=== PATIENT | female | born 1950 | race African-American/Black ===

== ENCOUNTER 2018-11-28 15:36 | Emergency (ER) | payer OTHER ==
[~2018-11-28] VITALS: Ht 157.5 cm; Wt 64.0 kg
[2018-11-28] MEDS ORDERED: ASPIR 8181 MG PO (15:42)
[2018-11-28] MEDS ORDERED: VITAMIN D3400 UNIT PO (15:43)
[2018-11-28 16:36] LABS: ABSOLUTE NEUTROPHILS 4.7 thou/uL (1.4-8.2); BASOPHILS 0.7 % (0.0-2.0); EOSINOPHILS 0.4 % (0.0-3.0); HEMATOCRIT 44.9 % (37.0-47.0); MCH 29.2 pg (26.0-34.0); MCHC 33.5 g/dL (28.0-37.0); MCV 87.2 fL (80.0-100.0); PLATELET COUNT 296 thou/uL (150-400); POLYS 67.9 % (36.0-66.0); RBC 5.15 mil/uL (4.20-5.00); RDW 13.6 % (10.5-14.5); WBC 6.9 thou/uL (4.0-11.0)
[2018-11-28 16:41] LABS: ANION GAP 7 mmol/L (7-16); BUN 11 mg/dL (7-18); CALCIUM 9.9 mg/dL (8.5-10.1); CHLORIDE 101 mmol/L (98-107); CO2 28 mmol/L (21-32); POTASSIUM 3.5 mmol/L (3.5-5.1); SODIUM 136 mmol/L (136-145)
[2018-11-28 16:48] LABS: GLUCOSE 105 mg/dL (74-106)
[2018-11-28 16:49] LABS: ALBUMIN 4.3 g/dL (3.4-5.0); SGOT 17 U/L (15-37); SGPT 19 U/L (30-65); TOTAL BILIRUBIN 0.8 mg/dL (<0.1-1.0); TOTAL PROTEIN 9.5 g/dL (6.4-8.2); TROPONIN-I <0.06 ng/mL (<0.06)
[2018-11-28] MEDS ORDERED: CLONIDINE0.1 PO (17:55)
[2018-11-28 18:03] VITALS: BP 139/89
--- NOTE | 2018-11-29 22:05 | EKG ---
[place] 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: RADHA : 1950 Requested By: Augusta Woodall Order Number: [id number] MD: Alex Lim Measurements Intervals [place] Rate: 101 P: 29 [place]: 169 QRS: -27 QRSD: 76 T: 28 QT: 329 QTc: 427 Interpretive Statements Sinus tachycardia Multiple premature complexes, vent & supraven Left ventricular hypertrophy Anterior Q waves, possibly due to LVH No previous ECG available for comparison Electronically Signed On 11-29-2018 22:05:33 REGISTERED NURSING PROFESSOR by Alex Lim [email or web address] <ELECTRONICALLY SIGNED> By: Alex Lim MD 11/29/18 [id number] Alex Lim MD /ARIELLE
== END 2018-11-28 18:17 | disposition home or self-care (01) ==
LOC: ER 15:36
PROVIDERS: Nurse Practitioner Family
DX: R03.0 Elevated blood-pressure reading, without diagnosis of hypertension (principal); Z90.710 Acquired absence of both cervix and uterus; Z88.2 Allergy status to sulfonamides; Z88.5 Allergy status to narcotic agent